=== PATIENT | female | born 1965 | race American Indian/Alaskan Native ===

== ENCOUNTER 2020-04-04 21:27 | Emergency (ER) | payer MEDICARE ==
--- NOTE | 2020-04-04 21:44 | Emergency Department Report ---
ED General Adult HPI - General Chief complaint: Pain General Stated complaint: LEFT FOOT INFECTION PUI?: No Time Seen by Provider: 04/04/20 21:38 Source: patient, family, EMS (Verbal report received from emergency medical services. EMS documentation not available at time of chart dictation ), RN notes reviewed, old records reviewed Mode of arrival: Stretcher Limitations: Physical Limitation, Other (Patient is demented and a poor historian) - History of Present Illness Initial comments: The patient is a 54-year-old female. 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 She was seen by vascular surgery, general surgery, and infectious disease. She completed a course of antibiotics. She has an indwelling right upper extremity PICC line. She was supposed to fol low-up with infectious disease for reassessment. Infectious disease recommended that bilateral above-knee amputations for her chronic right lower and left lower extremity wounds would possibly be curative for her gangrene. She is sent to the emergency room today by her wound care nurse for chronic wound. The patient herself denies acute complaints to me. I contacted her daughter, Ms. Precious White; [phone]. She tells me that she has agreed to proceed with surgery for the bilateral above-knee amputation. She tells me that she has the patient coming to the emergency room at the request of the patient's home care nurse. There is no complaint of fever, nausea, vomiting, diarrhea, cough or any new symptomatology. Her patient's daughter is also seeking assistance with transportation coordination. She states she does not know how she will get the patient to her outpatient appointments. The patient herself is resting comfortably, in her stretcher, and in no acute distress. We have ordered a case management consults to contact the patient at the aforementioned listed phone number to assist the patient's family with coordinating transportation to her outpatient appointments. In addition, as per discussion with patient's daughter and review of prior case management notes, the patient does have home health services in place. I contacted vascular surgery on-call, Dr. White, who recommended that this patient would not benefit from revascularization as she is bedbound and delmar nted. He further recommended that the general surgery service is able to perform the patient's bilateral above-knee amputation. Please note that this patient was seen by Dr. Mccollum, a general surgeon at this facility. I also contacted our general surgeon on-call, Dr. Bong Reyes, who works with Dr. Mccollum. She advises that the patient can follow- up this Sunday with Dr. Mccollum. I called up the patient's daughter, and discussed this plan of care with her. She is comfortable with the patient returning home, with the understanding that case management will call her in the morning to coordinate outpatient care. At the moment, the patient is resting comfortably in her stretcher, in no significant distress. Furthermore, as per discussion with the aforementioned general surgeon, the p atient will need to follow-up with outpatient infectious disease who make the final recommendation as to whether or not the patient's PICC line can and should be removed. This was conveyed to the daughter, who verbalized understanding. -: days(s) Location: left, right, lower extremity Improves with: none Worsens with: none - Related Data Home Medications Medication Instructions Recorded Confirmed Last Taken Ferrous Sulfate [Feosol 325 MG tab] 325 mg PO QDAY 04/21/16 03/23/20 Unknown Folic Acid [Folvite] 1 mg PO QDAY 04/21/16 03/23/20 Unknown Previous Rx's Medication Instructions Recorded Last Taken Type Famotidine [Pepcid] 20 mg PO BID #60 tablet 04/24/16 Unknown Rx Aspirin EC [Halfprin EC] 81 mg PO QDAY #30 tablet 04/26/16 Unknown Rx AtorvaSTATin [Lipitor] 20 mg PO QHS #30 tablet 04/26/16 Unknown Rx Citalopram [Celexa] 20 mg PO DAILY #30 tablet 04/26/16 Unknown Rx Furosemide [Lasix TAB] 20 mg PO QDAY #30 tablet 04/26/16 Unknown Rx Losartan [Cozaar] 25 mg PO QDAY #30 tablet 04/26/16 Unknown Rx bisacodyL [Dulcolax suppos] 10 mg [place] QDAY PRN #10 supp.rect 04/26/16 Unknown Rx carvediloL [Coreg] 6.25 mg PO BID #60 tablet 04/26/16 Unknown Rx oxyCODONE /ACETAMINOPHEN [Percocet 1 tab PO Q6H PRN #14 tablet 06/15/20 Unknown Rx 5/325 mg] Allergies Allergy/AdvReac Type Severity Reaction Status Date / Time No Known Allergies Allergy Verified 04/21/16 18:11 ED Review of Systems ROS: Stated complaint: LEFT FOOT INFECTION Other details as noted in HPI Comment: As per daughter Constitutional: denies: fever Respiratory: denies: cough Gastrointestinal: denies: nausea, vomiting, diarrhea Genitourinary: denies: dysuria Skin: lesions Neurological: weakness ED Past Medical Hx - Past Medical History Previous Medical History?: Yes Hx Hypertension: Yes Hx CVA: Yes Hx Heart Attack/AMI: Yes Hx Congestive Heart Failure: Yes Hx Diabetes: No Hx Deep Vein Thrombosis: No Hx Asthma: No Hx Dementia: Yes Additional medical history: CAD - Surgical History Past Surgical History?: No Hx Pacemaker: No Hx Internal Defibrillator: No - Social History Smoking Status: Never Smoker - Medications Home Medications: Home Medications Medication Instructions Recorded Confirmed Last Taken Type Ferrous Sulfate [Feosol 325 MG tab] 325 mg PO QDAY 04/21/16 03/23/20 Unknown History Folic Acid [Folvite] 1 mg PO QDAY 04/21/16 03/23/20 Unknown History Famotidine [Pepcid] 20 mg PO BID #60 tablet 04/24/16 03/23/20 Unknown Rx Aspirin EC [Halfprin EC] 81 mg PO QDAY #30 tablet 04/26/16 03/23/20 Unknown Rx AtorvaSTATin [Lipitor] 20 mg PO QHS #30 tablet 04/26/16 03/23/20 Unknown Rx Citalopram [Celexa] 20 mg PO DAILY #30 tablet 04/26/16 03/23/20 Unknown Rx Furosemide [Lasix TAB] 20 mg PO QDAY #30 tablet 04/26/16 03/23/20 Unknown Rx Losartan [Cozaar] 25 mg PO QDAY #30 tablet 04/26/16 03/23/20 Unknown Rx bisacodyL [Dulcolax suppos] 10 mg [place] QDAY PRN #10 supp.rect 04/26/16 03/23/20 Unknown Rx carvediloL [Coreg] 6.25 mg PO BID #60 tablet 04/26/16 03/23/20 Unknown Rx oxyCODONE /ACETAMINOPHEN [Percocet 1 tab PO Q6H PRN #14 tablet 03/29/20 Unknown Rx 5/325 mg] ED Physical Exam - General Limitations: Physical Limitation, Other (There is a right upper extremity PICC line noted, without redness, pus or streaking.) General appearance: alert, in no apparent distress - Head Head exam: Present: atraumatic, normocephalic - Eye Eye exam: Present: normal appearance - ENT ENT exam: Present: normal exam, mucous membranes moist, normal external ear exam - Neck Neck exam: Present: normal inspection. Absent: tenderness, meningismus - Respiratory Respiratory exam: Present: decreased breath sounds. Absent: respiratory distress - Cardiovascular Cardiovascular Exam: Present: regular rate, normal rhythm, normal heart sounds. Absent: bradycardia, tachycardia, irregular rhythm, systolic murmur, diastolic murmur, rubs, gallop - GI/Abdominal GI/Abdominal exam: Present: soft. Absent: distended, tenderness, guarding, rebound, rigid, pulsatile mass - Rectal Rectal exam: Present: other (Chaperoned by Ly Rocha. Chronic wound noted to right medial thigh, and gluteal cheek. No active redness, pus or streaking) - Extremities Exam Extremities exam: Present: other (2+ pulses noted in the bilateral upper extremities. Chronic wounds noted to the bilateral lower extremities. Patient contracted in the bilateral lower extremities. There is dry gangrene noted on the right lower extremity first through fifth digit. There is an ulceration noted to the right lateral foot. On the left lower extremity, there is an ulcer ation noted to the medial aspect of the left first digit. Pulses are not felt. Patient has 1+ femoral pulses bilaterally. The muscular compartments are soft. There is no redness, pus or streaking) - Back Exam Back exam: Present: normal inspection. Absent: tenderness, CVA tenderness (R), CVA tenderness (L), paraspinal tenderness, vertebral tenderness - Neurological Exam Neurological exam: Present: other (The patient is awake. Patient follows commands. The patient is demented. She has contractures in her bilateral lower extremities. She is moving her bilateral upper extremity spontaneous) - Skin Skin exam: Present: warm ED Course Vital Signs 04/04/20 22:29 Temperature 98.5 F Pulse Rate 85 Respiratory 16 Rate Blood Pressure 123/66 [Left] O2 Sat by Pulse 100 Oximetry ED Medical Decision Making - Lab Data Result diagrams: 04/04/20 22:37 04/04/20 22:37 Vital Signs 04/04/20 22:29 Temperature 98.5 F Pulse Rate 85 Respiratory 16 Rate Blood Pressure 123/66 [Left] O2 Sat by Pulse 100 Oximetry Lab Results 04/04/20 04/04/20 04/04/20 Range/Units 22:37 22:37 22:37 WBC 8.3 (4.5-11.0) K/mm3 RBC 3.68 (3.65-5.03) M/mm3 Hgb 10.4 (10.1-14.3) gm/dl Hct 33.0 (30.3-42.9) % MCV 90 (79-97) fl MCH 28 (28-32) pg MCHC 32 (30-34) % RDW 17.1 H (13.2-15.2) % Plt Count 299 (140-440) K/mm3 PT 13.2 (12.2-14.9) Sec. INR 1.02 (0.87-1.13) Sodium 138 (137-145) mmol/L Potassium 4.3 (3.6-5.0) mmol/L Chloride 103.4 (98-107) mmol/L Carbon Dioxide 25 (22-30) mmol/L Anion Gap 14 mmol/L BUN 13 (7-17) mg/dL Creatinine 0.5 L (0.7-1.2) mg/dL Estimated GFR > 60 ml/min BUN/Creatinine Ratio 26 % Glucose 106 H (65-100) mg/dL Calcium 8.6 (8.4-10.2) mg/dL Magnesium 2.20 (1.7-2.3) mg/dL Total Creatine Kinase 53 (30-135) units/L - Radiology Data Radiology results: report reviewed, image reviewed Print Report Referring Physician: CHAVEZ GONZALEZ Patient Name: DARSHANA WHITE Date of : 1965 Sex: Female Report Date: 2020-03-23 Report Status: Finalized Findings [facility] [address] [place] [address] Vascular Lab Report Signed Patient: DARSHANA WHITE MR#: [id number] 4 : 1965 Acct:[id number] Age/Sex: 54 / F ADM Date: 03/22/20 Loc: 3A A356-[address]: CHAVEZ GONZALEZ MD Ordering Physician: CHAVEZ GONZALEZ MD Date of Service: 03/22/20 Procedure(s): VL arterial duplex LE BILAT Accession Number(s): [id number] cc: CHAVEZ GONZALEZ MD DUPLEX DOPPLER LOWER EXTREMITY ARTERIAL, BILATERAL INDICATION: PAD. TECHNIQUE: Arterial duplex examination of both lower extremities performed using B-mode, color flow and spectral Doppler assessment technically difficult exam due to contracture of the legs and patient pain FINDINGS: RIGHT: Common Femoral Artery: PSV 154 cm/sec. Triphasic waveform. Proximal SFA: PSV 168 cm/sec. Triphasic waveform. Mid SFA: PSV 177 cm/sec. Tr iphasic waveform. Distal SFA: PSV 172 cm/sec. Triphasic waveform. Popliteal artery: PSV 104 cm/sec. Triphasic waveform. Posterior tibial artery: PSV 62 cm/sec. Monophasic waveform. Dorsalis Pedis Artery: PSV 34 cm/sec. Monophasic waveform. LEFT: Common Femoral Artery: PSV 220 cm/sec. Triphasic waveform. Proximal SFA: PSV 165 cm/sec. Triphasic waveform. Mid SFA: PSV 166 cm/sec. Triphasic waveform. Distal SFA: PSV 161 cm/sec. Triphasic waveform. Popliteal artery: PSV 117 cm/sec. Monophasic waveform. Posterior tibial artery: PSV 65 cm/sec. Monophasic waveform. Dorsalis Pedis Artery: PSV 67 cm/sec. Monophasic waveform. IMPRESSION: 1. Monophasic flow at the ankle suggest disease in the runoff vessels bilaterally . Monophasic flow in the left popliteal artery suggests significant disease in this location as well. Doppler Waveform: * Triphasic is normal. * Biphasic is abnormal if clear transition from triphasic signal along vascular tree. * Monophasic is abnormal. Signer Name: Silas Holbrook MD Signed: 03/23/2020 3:50 PM Workstation Name: [id number] Transcribed By: Dictated By: Silas Holbrook MD Electronically Authenticated By: Silas Holbrook MD Signed Date/Time: 03/23/20 1550 DD/ 1540 Print Report Referring Physician: CHANTELL FLORES Patient Name: DARSHANA WHITE Date of : 1965 Sex: Female Report Date: 2020-03-22 Report Status: Finalized Findings [facility] [address] [place] [address] XRay Report Signed Patient: DARSHANA WHITE MR#: [id number] 4 : 1965 Acct:[id number] Age/Sex: 54 / F ADM Date: 03/22/20 Loc: ED Attending Dr: Ordering Physician: CHANTELL FLORES Date of Service: 03/22/20 Procedure(s): XR foot BILAT 2V Accession Number(s): [id number] cc: CHANTELL FLORES Fluoro Time In Minutes: AP AND LATERAL VIEWS OF BOTH FEET INDICATION: Bilateral foot gangrene. COMPARISON: No relevant prior imaging study available. FINDINGS: D egenerative changes are noted in both feet, greatest at the MTP joints. No acute, displaced fracture is seen bilaterally. There is periarticular osteopenia at the MTP joints. However, no jamarcus cortical destruction is seen. IMPRESSION: 1. No radiographic evidence of acute osteomyelitis. If clinical suspicion for osteomyelitis is high, MRI should be considered. Signer Name: Micha Delatorre MD Signed: 03/22/2020 5:43 PM Workstation Name: [id number] Transcribed By: Dictated By: Micha Delatorre MD Electronically Authenticated By: Micha Delatorre MD Signed Date/Time: 03/22/201742 DD/ 40 TD/TT: - Medical Decision Making Differential diagnosis, including but not limited to: Dementia, contractures, gangrene, chronic wounds, case management patient Assessment and plan: 54-year-old female with chronic contractures, known gangrene, who was sent to the emergency room for what appears to be primarily social reasons. Her daughter appears to be very invested in her care, she has home health, her surgeon of record can see her in 2 to 3 days, she has completed her antibiotic course, she does not have evidence of active infection at this time, baseline laboratory studies appear to be unremarkable. Case management consultation has been placed. We have contacted general surgeon on-call, and the patient can be accommodated with an outpatient appointment this Sunday. It is currently Patricio morning. Her daughter is reliable to call up with infectious disease and general surgery and schedule outpatient appointments for follow-up. Case management can assist with transportation. Critical care attestation.: If time is entered above; I have spent that time in minutes in the direct care of this critically ill patient, excluding procedure time. ED Disposition Clinical Impression: Gangrene of both feet, Vascular dementia, Decubitus ulcer, Case management patient Disposition: - TO HOME OR SELFCARE Is pt being admited?: No Does the pt Need Aspirin: No Condition: Good Additional Instructions: Please continue current outpatient medications. Please follow-up with your general surgeon Dr. Mccollum, this Sunday, April 07. Please make certain to call the office to make a follow-up appointment. Please follow-up with infectious disease, such as Dr. Murguia, within the next 7 days. Please call the office to make an appointment. The patient should receive a phone call from case management to assist with transportation considerations. However, if she does not receive a phone call, she may contact this emergency room at [phone] during normal business hours, and asked to speak to case management to facilitate. Please return to the emergency room right away with fever, chills, lethargy, irritability, projectile vomiting, change in mental status, confusion, inability to tolerate liquid feeds, new, worsened or different symptoms not present on the initial emergency room evaluation. Please continue home wound care. Referrals: MINH MCCOLLUM MD [Staff Physician] - 3-5 Days EMILY MURGUIA MD [Staff Physician] - 3-5 Days
[2020-04-04 22:57] LABS: Hemoglobin 10.4 gm/dl (10.1-14.3); Mean Corpuscular HGB Conc 32 % (30-34); Mean Corpuscular Volume 90 fl (79-97); Platelet Count 299 K/mm3 (140-440); Red Blood Count 3.68 M/mm3 (3.65-5.03); Red Cell Distribution Width 17.1 % (13.2-15.2)
[2020-04-04 23:06] LABS: INR 1.02 (0.87-1.13)
[2020-04-04 23:15] LABS: BUN/Creatinine Ratio 26; Blood Urea Nitrogen 13 mg/dL (7-17); Calcium 8.6 mg/dL (8.4-10.2); Hemolysis Index 9
[2020-04-05 03:12] VITALS: BP 110/54
== END 2020-04-05 03:35 | disposition home or self-care (01) ==
LOC: ED 21:27
DX: I96 Gangrene, not elsewhere classified (principal); L89.899 Pressure ulcer of other site, unspecified stage; F01.50 Vascular dementia, unspecified severity, without behavioral disturbance, psychotic disturbance, mood disturbance, and anxiety; I11.0 Hypertensive heart disease with heart failure; I50.9 Heart failure, unspecified; I25.2 Old myocardial infarction; Z79.899 Other long term (current) drug therapy
CPT/HCPCS: 36415; 80048; 82550; 83735; 85027; 85610